=== PATIENT | male | born 1940 | race Caucasian/White ===

== ENCOUNTER → 2016-11-25 | Outpatient (CLI) | payer OTHER ==
[~2016-11-25] MED LIST: ACET250T2 PO; ASPI81TA50 PO; CHOL20003 PO; CLOP75TA22 PO; FOLI-17 PO; IRBE75TA10 PO; LEVO112C2 PO; MULT1CAP19 PO; NEPA1.7D OP; SIMBRINZA; SIMV20TA3 PO; TAMS0.4C2 PO; TIMOLOL
== END | disposition home or self-care (01) ==
LOC: CFH 12:50
PROVIDERS: ATTEND Ophthalmology
DX: I70.90 Unspecified atherosclerosis (principal); G45.3 Amaurosis fugax
CPT/HCPCS: 93880

== ENCOUNTER → 2018-01-17 | Outpatient (CLI) | payer OTHER ==
[~2018-01-17] MED LIST changes: +CHOL2000 PO; -CHOL20003 PO; -CLOP75TA22 PO; +CLOP75TA52 PO
== END | disposition home or self-care (01) ==
LOC: CFH 12:47
PROVIDERS: ATTEND Ophthalmology
DX: I35.8 Other nonrheumatic aortic valve disorders (principal); G45.3 Amaurosis fugax; I10 Essential (primary) hypertension; E78.5 Hyperlipidemia, unspecified
CPT/HCPCS: 93306

== ENCOUNTER → 2018-03-02 | Outpatient (CLI) | payer OTHER | END | disposition home or self-care (01) | LOC: CFH 14:06 | PROVIDERS: ATTEND Internal Medicine | DX: H54.7 Unspecified visual loss (principal); Z87.891 Personal history of nicotine dependence | CPT/HCPCS: 70450 ==

== ENCOUNTER 2018-08-21 16:11 | Outpatient (CLI) | payer OTHER | END 2018-08-21 23:59 | disposition home or self-care (01) | LOC: CFH 16:11 | PROVIDERS: ATTEND Nurse Practitioner | DX: R73.01 Impaired fasting glucose (principal) ==

== ENCOUNTER 2019-06-19 11:40 | Emergency (ER) | payer OTHER ==
[~2019-06-19] VITALS: Ht 182.9 cm; Wt 74.9 kg
--- NOTE | 2019-06-19 12:26 | NUR ---
task rn: labs drawn. awaiting results. us to bs at this time.
[2019-06-19 12:30] LABS: BASOPHILS # (AUTO) 0.03 x10^3/uL (0-0.1); BASOPHILS % (AUTO) 1 % (0-1); EOSINOPHILS # (AUTO) 0.04 x10^3/uL (0-0.4); EOSINOPHILS % (AUTO) 1 % (1-7); LYMPHOCYTES # (AUTO) 1.54 x10^3/uL (1-3.4); LYMPHOCYTES % (AUTO) 38 % (22-44); MD NO; MEAN CORPUSCULAR HEMOGLOBIN 35.9 pg (27.5-34.5); MEAN CORPUSCULAR HGB CONC 33.6 g/dL (33.2-36.2); MEAN PLATELET VOLUME 7.5 fL (7.4-10.4); MONOCYTES # (AUTO) 0.41 x10^3/uL (0.2-0.8); MONOCYTES % (AUTO) 10 % (2-9); NEUTROPHILS # (AUTO) 2.05 x10^3/uL (1.8-6.8); NEUTROPHILS % (AUTO) 50 % (42-75); PLATELET COUNT 147 x10^3/uL (130-400); RED BLOOD COUNT 3.73 x10^6/uL (4.38-5.82); RED CELL DISTRIBUTION WIDTH 12.8 % (9.4-14.8)
[2019-06-19 12:40] LABS: ALBUMIN 3.7 g/dL (3.4-5.0); ANION GAP 8 mmol/L (5-15); CALCIUM 8.7 mg/dL (8.5-10.1); CHLORIDE 99 mmol/L (98-107); CREATININE 0.84 mg/dL (0.7-1.3)
[2019-06-19 12:43] LABS: TROPONIN I < 0.015 ng/mL (0.000-0.045)
--- NOTE | 2019-06-19 13:42 | NUR ---
PT RESTING IN GURNEY. PT'S AOX4. RESPS EVEN AND UNLABORED. PT'S DAUGHTER AT BEDSIDE AT THIS TIME.
[2019-06-19 15:05] VITALS: BP 144/75
--- NOTE | 2019-06-19 15:05 | NUR ---
PT RESTING IN [facility]. PT'S AOX4. RESPS EVEN AND UNLABORED. AWAITING DC.
--- NOTE | 2019-06-19 15:12 | NUR ---
Patient given discharge instructions and they have confirmed that they understand the instructions. Patient ambulatory with steady gait.
== END 2019-06-19 15:13 | disposition home or self-care (01) ==
LOC: ED 13:49
DX: M79.632 Pain in left forearm (principal); I10 Essential (primary) hypertension; E03.9 Hypothyroidism, unspecified; E78.00 Pure hypercholesterolemia, unspecified; Z86.73 Personal history of transient ischemic attack (TIA), and cerebral infarction without residual deficits
CPT/HCPCS: 36415; 71045; 80048; 82040; 84484; 85025; 93005; 99284